=== PATIENT | female | born 1970 | race Caucasian/White ===

== ENCOUNTER 2019-12-29 10:36 | Outpatient (CLI) | payer BC, SELFPAY ==
--- NOTE | ~2019-12-29 | MM_ITS ---
EXAMINATION: MM screening [facility] BI w tish HISTORY: Screening mammogram TECHNIQUE: Craniocaudal and mediolateral oblique 3-D tomosynthesis images were obtained and synthetic 2-D images were generated. CAD analysis was submitted and interpreted. COMPARISON: 12/22/2018, 01/19/2017, 01/16/2016 BREAST PARENCHYMAL COMPOSITION: There are scattered areas of fibroglandular density. FINDINGS: There is no evidence of suspicious mass, calcification, or architectural distortion to sugg est malignancy in either breast. There has been no suspicious interval change. IMPRESSION: 1. No mammographic evidence of malignancy. 2. Recommend routine screening mammography in one year. BI-RADS Category 1: Negative Reviewed, dictated and finalized at location A. USIONIST
== END 2019-12-29 10:37 | disposition home or self-care (01) ==
DX: Z12.31 Encounter for screening mammogram for malignant neoplasm of breast (principal)
CPT/HCPCS: 77063; 77067

== ENCOUNTER → 2020-08-17 10:00 | Outpatient (CLI) | payer BC, SELFPAY ==
--- NOTE | ~2020-08-17 | XR_ITS ---
XR chest 2V DATE: 08/17/2020 10:22 INDICATION: Shortness of breath, chest pain, fatigue TECHNIQUE: PA and lateral views COMPARISON: 10/23/2016 PA and lateral chest FINDINGS: Normal heart size. No hilar or mediastinal enlargement. No pulmonary infiltrate or consolid ation, pleural effusion or pulmonary vascular congestion or pneumothorax. IMPRESSION: No active cardiopulmonary disease Reviewed, dictated and finalized at location A.
== END ==
PROVIDERS: PCP Internal Medicine; Visit Provider Internal Medicine
DX: R06.02 Shortness of breath (principal); R00.2 Palpitations
CPT/HCPCS: 71046

== ENCOUNTER 2020-08-17 11:18 | Outpatient (CLI) | payer BC, SELFPAY ==
--- NOTE | 2020-08-17 11:33 | ECG_ITS ---
Measurements Intervals Combs Rate: 88 P: 49 AL: 166 QRS: 31 QRSD: 77 T: 46 QT: 355 QTc: 430 Interpretive Statements SINUS RHYTHM LOW QRS VOLTAGE IN PRECORDIAL LEADS BASELINE WANDER- II, III, AVL, AVF BORDERLINE ECG Electronically Signed On 08-17-2020 12:36:28 CDT by Germain Walter D.O.
== END 2020-08-17 11:19 | disposition home or self-care (01) ==
LOC: ANHCARD 11:21
PROVIDERS: PCP Internal Medicine; Visit Provider Internal Medicine
DX: R06.02 Shortness of breath (principal); R00.2 Palpitations; I10 Essential (primary) hypertension
CPT/HCPCS: 93005